=== PATIENT | male | born 1985 | race Caucasian/White ===

== ENCOUNTER 2019-06-07 09:07 | Emergency (ER) | payer OTHER ==
[~2019-06-07] VITALS: Ht 172.7 cm; Wt 113.4 kg
[2019-06-07] MEDS ORDERED: OMEPRAZOLE40 MG PO (09:31)
[2019-06-07] MEDS ORDERED: CARAFATE1 GM PO (10:27)
[2019-06-07] MEDS ORDERED: ZOFRAN4 MG PO (10:28)
== END 2019-06-07 11:36 | disposition home or self-care (01) ==
LOC: ED 09:07
DX: K29.70 Gastritis, unspecified, without bleeding (principal); K21.9 Gastro-esophageal reflux disease without esophagitis; Z91.018 Allergy to other foods; Z79.899 Other long term (current) drug therapy
CPT/HCPCS: 80053; 83690; 85025; 96361; 96374; 96375; 99284-25; J2405; J7030